=== PATIENT | male | born 1955 | race Caucasian/White ===

== ENCOUNTER 2017-03-22 20:08 | Emergency (ER) | payer MEDICAID ==
[~2017-03-22] VITALS: Ht 170.2 cm; Wt 56.9 kg
[~2017-03-22 20:08] MED LIST: BP MED; CHOLESTEROL MED; LISI-167 PO; [UNRECOGNIZED DRUG - REMARK]
[2017-03-22 20:10] VITALS: BP 131/79
[2017-03-22] MEDS ORDERED: KETOROLAC 30 MG/1 ML IM ONE (21:00)
[2017-03-22] MEDS ORDERED: KETOROLAC 30 MG/1 ML ONE (21:20)
[2017-03-22] MEDS ORDERED: IBUPROFEN 200 MG TABLET ONE (21:23)
[2017-03-22] MEDS ORDERED: IBUPROFEN 200 MG TABLET PO ONE (22:00)
== END 2017-03-22 21:58 | disposition home or self-care (01) ==
LOC: ED 21:30
DX: S73.101A Unspecified sprain of right hip, initial encounter (principal); S73.102A Unspecified sprain of left hip, initial encounter; I10 Essential (primary) hypertension; Z95.1 Presence of aortocoronary bypass graft; X58.XXXA Exposure to other specified factors, initial encounter; Y93.89 Activity, other specified; Y92.410 Unspecified street and highway as the place of occurrence of the external cause; Y99.8 Other external cause status
CPT/HCPCS: 72170; 99283

== ENCOUNTER 2018-02-15 12:20 | Emergency (ER) | payer MEDICAID ==
[~2018-02-15] VITALS: Ht 170.2 cm; Wt 52.3 kg
[2018-02-15] MEDS ORDERED: ALBUTEROL/IPRATROPIUM 2.5MG/0.5MG, 3 ML ONE (13:27)
[2018-02-15] MEDS ORDERED: ALBUTEROL/IPRATROPIUM 2.5MG/0.5MG, 3 ML NPPB ONE (13:30)
[2018-02-15] MEDS ORDERED: SODIUM CHLORIDE FLUSH 10ML SYR IVF ONE (13:30)
[2018-02-15] MEDS ORDERED: SODIUM CHLORIDE 0.9% 1,000ML IVBOLUS ONE (13:30)
[2018-02-15 13:54] LABS: BASOPHILS # (AUTO) 0.05 x10^3/uL (0-0.1); BASOPHILS % (AUTO) 0 % (0-1); EOSINOPHILS % (AUTO) 0 % (1-7); LYMPHOCYTES # (AUTO) 0.82 x10^3/uL (1-3.4); LYMPHOCYTES % (AUTO) 6 % (22-44); MD NO; MEAN CORPUSCULAR HEMOGLOBIN 30.3 pg (27.5-34.5); MEAN CORPUSCULAR HGB CONC 33.6 g/dL (33.2-36.2); MEAN PLATELET VOLUME 8.3 fL (7.4-10.4); MONOCYTES % (AUTO) 4 % (2-9); NEUTROPHILS # (AUTO) 12.31 x10^3/uL (1.8-6.8); NEUTROPHILS % (AUTO) 89 % (42-75); PLATELET COUNT 142 x10^3/uL (130-400); RED BLOOD COUNT 5.52 x10^6/uL (4.38-5.82); RED CELL DISTRIBUTION WIDTH 14.6 % (9.4-14.8)
[2018-02-15 14:04] LABS: CHLORIDE 102 mmol/L (98-107)
[2018-02-15 14:05] LABS: ALBUMIN 3.1 g/dL (3.4-5.0); ANION GAP 6 mmol/L (5-15); CALCIUM 8.5 mg/dL (8.5-10.1); CREATININE 1.09 mg/dL (0.7-1.3)
[2018-02-15 15:12] VITALS: BP 109/69
== END 2018-02-15 15:26 | disposition home or self-care (01) ==
LOC: ED 13:29
DX: K40.91 Unilateral inguinal hernia, without obstruction or gangrene, recurrent (principal); J43.9 Emphysema, unspecified; I10 Essential (primary) hypertension; F20.9 Schizophrenia, unspecified
CPT/HCPCS: 36415; 71045; 80048; 82040; 85025; 94640; 96360; 99285; J7030; J7620